=== PATIENT | female | born 2000 | race Caucasian/White ===

== ENCOUNTER 2024-08-19 08:17 | Emergency (ER) | payer OTHER, SELFPAY ==
[2024-08-19 08:20] VITALS: BP 104/80; PULSE 104; RESP 18; TEMP 37.1; O2SAT 99; BMI 25.7
--- NOTE | 2024-08-19 08:37 | EX.ED.DYSGE1 ---
HPI History of Present Illness Chief Complaint: Nausea/Vomiting/Diarrhea Informant: patient Narrative Narrative: 23-year-old female presenting to the emergency room out of concern for dehydration. Patient states that on Saturday she developed nausea vomiting and diarrhea. She states that by the end of the day she felt dehydrated and was not stooling as often. She had been stooling about every 30 minutes to an hour. She notes some lower abdominal discomfort and this morning awoke with continued diarrhea and vomiting. Yesterday she did attempt to hydrate and eat a little. She denies any fevers. She is visiting from out of town. No rashes. She notes a history of anxiety takes oral control and Lexapro but no other medical conditions known. PFSH PFS Home Medications ?Medication ?Instructions ?Recorded ?Last Taken ?Type norethindrone 1 mg-ethinyl 1 tab PO DAILY 08/19/24 Unknown History estradiol 10 mcg (24)-iron 10 mcg(2) tablet (Lo Loestrin Fe) ondansetron 4 mg disintegrating 4 mg PO Q6H PRN PRN Nausea #15 tabs 08/19/24 Unknown Rx tablet Allergy/AdvReac Type Severity Reaction Status Date / Time amoxicillin Allergy Hives Verified 08/19/24 08:18 sulfamethoxazole (From Allergy Hives Verified 08/19/24 08:18 Bactrim) trimethoprim (From Bactrim) Allergy Hives Verified 08/19/24 08:18 Social History Smoking Status: Never smoker [facility] ED Constitutional Constitutional ED: Denies chills, fever(s) or weight loss Eyes Eyes: Denies change in vision or diplopia ENT ENT ED: Denies ear pain, rhinorrhea or sore throat Cardiovascular Cardiovascular: Denies chest pain, orthopnea, palpitations or racing heartbeat Respiratory/Chest Respiratory/Chest: Denies cough, dyspnea or orthopnea Gastrointestinal Gastrointestinal: Reports diarrhea, nausea and vomiting; Denies abdominal pain Genitourinary Genitourinary ED: Denies dysuria, hematuria or urinary frequency Musculoskeletal Musculoskeletal: Denies arthralgias or myalgias Integumentary Denies abscess or rash Neurologic Neurologic: Denies headache(s) or weakness Psychiatric Psychiatric: Denies anxiety, depression, suicidal ideation or suicidal thoughts Endocrine Endocrinology: Denies polydipsia, polyphagia or polyuria Allergic/Immunologic Allergic/Immunologic ED: Denies mouth swelling, tongue swelling or urticaria EXAM Physical Exam Const Vital Signs: 08/19/24 08:20 Temperature 98.7 F Temperature Source Oral Pulse Rate 104 H Respiratory Rate 18 Blood Pressure 104/80 Blood Pressure Mean 88 Pulse Ox 99 Oxygen Delivery Method Room Air Positive well nourished and well developed General Appearance ED: well developed HEENT Reports normocephalic, head/scalp atraumatic and moist mucous membranes Eyes PERRL and EOMs intact bilaterally Neck no lymphadenopathy, supple and no JVD Resp normal respiratory effort and clear to auscultation bilaterally Cardio regular rate, regular rhythm and no murmurs Rate: tachycardic and other Other Details: Delayed capillary refill at 4 seconds of the upper extremities GI normal to inspection, nondistended, normoactive bowel sounds and non-tender Palpation: soft Back/Spine no CVA tenderness and normal ROM Extremity normal to inspection General Extremety ED: Negative for edema General Extremity: Negative for edema Neuro oriented x3 and CN's II-XII intact bilaterally Sensorium / Orientation: alert Motor Exam: strength 5/5 throughout Psych mental status grossly normal Mood & Affect: Negative for depressed or tearful Skin no rashes or lesions noted and no wounds MDM MDM MDM Narrative Medical decision making narrative: Differential diagnosis includes but not limited to gastroenteritis colitis dehydration electrolyte abnormalities JAMESON hypoglycemia IV was established BMP was obtained patient received IV fluids and Zofran. BMP is within normal limits. Glucose 103. CO2 25 anion gap of 7. Patient be discharged home with a prescription for Zofran as needed Imodium. Given the outbreak of norovirus in her community I think this would be high on the differential. Clinically I think the patient can orally hydrate at home return if worsening or concerns History & Record Review Discussion w/independent historian: Patient Lab Data Attestation: I reviewed the patient's lab results. Labs: Laboratory Results - last 24 hr 08/19/24 08:44 Sodium 138 Potassium 3.8 Chloride 106 Carbon Dioxide 25.0 Anion Gap 7 BUN 8 Creatinine 0.73 Estim Creat Clear Calc 124.28 Est GFR (MDRD) Af Amer 124 Est GFR (MDRD) Non-Af 103 BUN/Creatinine Ratio 11.0 Glucose 103 Calcium 8.7 Discharge Plan Triage Chief Complaint: Nausea/Vomiting/Diarrhea ED Provider: Delat Chapman Dx/Rx/DC Orders Clinical Impression: Gastroenteritis, Acute dehydration Instructions: Viral Gastroenteritis, ED Dehydration (Adult) Prescriptions: New ondansetron 4 mg tablet,disintegrating 4 mg PO Q6H PRN PRN (Reason: Nausea) Qty: 15 0RF No Action Lo Loestrin Fe 1 mg-10 mcg (24)/10 mcg (2) tablet 1 tab PO DAILY Primary Care Provider: SANDRA JAMES APRN Activity Restrictions/Additional Instructions: You most likely have a viral gastroenteritis. Imodium as needed for diarrhea Zofran for nausea and vomiting. Zofran can be constipating in some people. Would recommend oral hydration. There is an outbreak of norovirus in this community. Sometimes this illness persist for a week or even a longer. Please try to keep yourself hydrated. Seek medical care if you feel dehydrated. Print Language: Kiswahili Disposition Disposition: Home, Self Care
[2024-08-19] MEDS: Ondansetron 4 MG/2 ML Vial IV (08:47)
[2024-08-19] MEDS: 0.9% Normal Saline (1000mL) 1,000 ML 1000 ML IV (08:47)
[2024-08-19 09:03] LABS: Anion Gap 7 (5-15); BUN 8 mg/dL (7-18); Calcium,Total 8.7 mg/dL (8.5-10.1); Chloride 106 mmol/L (98-107); Creatinine, Serum 0.73 mg/dL (0.55-1.02); EST Glomerular Filtration Rate 103 mL/min (>60); Est Glom Filt Rate - Afr Amer 124 mL/min (>60); Estimated Creatinine Clearance 124.28 ml/min; Glucose 103 mg/dL (74-106); Potassium 3.8 mmol/L (3.5-5.1); Sodium Level 138 mmol/L (136-145)
[2024-08-19 10:11] VITALS: BP 124/63; PULSE 84; RESP 16; TEMP 36.2; O2SAT 99
== END 2024-08-19 10:17 | disposition home or self-care (01) ==
PROVIDERS: Emergency Provider Emergency Medicine; Visit Provider Emergency Medicine
DX: K52.9 Noninfective gastroenteritis and colitis, unspecified (principal); E86.0 Dehydration
CPT/HCPCS: 80048; 96361; 96374; 96376; 99283; A4216; J2405